=== PATIENT | male | born 1960 | race Caucasian/White ===

== ENCOUNTER 2017-09-15 01:30 | Emergency (ER) | payer OTHER ==
[2017-09-15] MEDS ORDERED: ONDANSETRON HCL 4 MG/2 ML SOL IV ONE (02:33)
[2017-09-15] MEDS ORDERED: SODIUM CHLORIDE 0.9% 1000ML 1,000 ML IV ONE (02:33)
[2017-09-15 03:19] LABS: BASOPHILS % (AUTO) 1 % (0-3); EOSINOPHILS % (AUTO) 1 % (0-9); HEMATOCRIT 44 % (39-53); MEAN CORPUSCULAR HGB CONC 34.6 gm/dl (32.0-36.0); NEUTROPHILS % (AUTO) 75.7 % (37-80)
[2017-09-15 03:38] LABS: MEAN CORPUSCULAR VOLUME 79 fL (80-100)
[2017-09-15 03:56] LABS: ALBUMIN 3.9 gm/dl (3.4-5.0); BILIRUBIN,DIRECT 0.1 mg/dl (0.0-0.2); CALCIUM 8.7 mg/dl (8.5-10.1); MAGNESIUM 2.5 mg/dl (1.8-2.4); POTASSIUM 4.5 mMol/L (3.5-5.1); THYROID STIMULATING HORMONE 1.078 uIU/ml (0.358-3.740)
[2017-09-15 04:39] LABS: TRICYCLIC ANTIDEPRESSANTS NEGATIVE (NEGATIVE)
[2017-09-15 04:40] LABS: AMPHETAMINES NEGATIVE (NEGATIVE); METHADONE NEGATIVE (NEGATIVE); OPIATES(OP13) POSITIVE (NEGATIVE); OXYCODONE(OXY) NEGATIVE (NEGATIVE); PROPOXYPHENE(PPX) NEGATIVE (NEGATIVE)
[2017-09-15 09:15] VITALS: BP 111/78; PULSE 82; RESP 18; TEMP 97.9; O2SAT 97
== END 2017-09-15 09:13 | disposition short-term general hospital (02) | DRG 897 ==
LOC: ED 01:30
DX: F10.929 Alcohol use, unspecified with intoxication, unspecified (principal); M54.9 Dorsalgia, unspecified
CPT/HCPCS: 80048; 80076; 80305; 80307; 83735; 84443; 85025; 85610; 99283; 99285

== ENCOUNTER 2018-04-09 15:20 | Emergency (ER) | payer BC, OTHER ==
[2018-04-09 15:54] VITALS: RESP 20
[2018-04-09 15:58] LABS: BASOPHILS % (AUTO) 1 % (0-3); EOSINOPHILS % (AUTO) 4 % (0-9); HEMATOCRIT 47 % (39-53); HEMOGLOBIN 15.1 gm/dl (13.5-17.7); LYMPHOCYTES % (AUTO) 16.2 % (10-50); MEAN CORPUSCULAR HEMOGLOBIN 25.9 pg (27.0-32.0); MEAN CORPUSCULAR HGB CONC 32.2 gm/dl (32.0-36.0); NEUTROPHILS % (AUTO) 69.6 % (37-80)
[2018-04-09 16:07] LABS: MEAN CORPUSCULAR VOLUME 80 fL (80-100)
[2018-04-09 16:08] LABS: CALCIUM 8.7 mg/dl (8.5-10.1); CARBON DIOXIDE 25.3 mEq/L (21-32); CREATININE 1.15 mg/dl (0.80-1.30); POTASSIUM 4.3 mMol/L (3.5-5.1)
[2018-04-09 16:12] LABS: BILIRUBIN,URINE 1+ (NEGATIVE); COLOR,URINE Red; GLUCOSE, URINE (UA) NEGATIVE (NEGATIVE); KETONES,URINE TRACE (NEGATIVE); LEUKOCYTE ESTERASE ,URINE NEGATIVE (NEGATIVE); NITRATE,URINE NEGATIVE (NEGATIVE); OCCULT BLOOD,URINE 3+ (NEG-TRACE); PH,URINE 5.5; UROBILINOGEN,URINE 0.2 (0.2-1.0 EU)
[2018-04-09 16:20] LABS: APPEARANCE,URINE Turbid
[2018-04-09 16:21] LABS: ICTOTEST,URINE NEG (NEGATIVE); RBC,URINE TNTC (0-3AV/HPF); WBC,URINE 50-60 (0-5AV/HPF)
[2018-04-09 16:25] LABS: BACTERIA UNABLE TO QUANTIFY (< 1+); CRYSTALS UNABLE TO QUANTIFY (0-3 AVE/HPF)
[2018-04-09 17:56] VITALS: BP 133/88; PULSE 83; TEMP 97; O2SAT 99
== END 2018-04-09 18:10 ==
LOC: ED 15:20
DX: R31.9 Hematuria, unspecified (principal)
CPT/HCPCS: 36415; 74178; 80048; 81001; 85025; 87088; 99283; Q9967